=== PATIENT | female | born 1960 | race Caucasian/White ===

== ENCOUNTER 2018-10-03 06:48 | Emergency (ER) | payer SELFPAY ==
[~2018-10-03] VITALS: Ht 170.2 cm; Wt 154.0 kg
[~2018-10-03 06:48] MED LIST: LORTAB 5/3255 MG PO; NO MEDS
[2018-10-03 07:50] VITALS: BP 139/86
== END 2018-10-03 07:42 | disposition home or self-care (01) | DRG 563 ==
LOC: ED 06:48
DX: S86.911A Strain of unspecified muscle(s) and tendon(s) at lower leg level, right leg, initial encounter (principal); M17.11 Unilateral primary osteoarthritis, right knee; I10 Essential (primary) hypertension; X58.XXXA Exposure to other specified factors, initial encounter

== ENCOUNTER 2020-05-26 04:01 | Observation (INO) | payer OTHER ==
[~2020-05-26] VITALS: Ht 170.2 cm; Wt 158.8 kg
[2020-05-26] MEDS ORDERED: HYDROCHLOROT25 MG PO (04:26)
[2020-05-26 05:51] LABS: IMMATURE GRANULOCYTES 0.5 % (0.0-5.0); MEAN CORPUSCULAR HGB 28.5 pG CALC (26.0-32.0); MEAN CORPUSCULAR HGB CONC 32.1 g/dL CAL (32.0-36.0); NEUT# 10.14 thou/uL (2.00-7.15); RED BLOOD COUNT 4.87 mill/uL (4.20-5.60); RED CELL DISTRI WIDTH 14.2 % (11.5-15.5)
[2020-05-26 05:54] LABS: HEMATOCRIT 43.3 % (37.0-47.0); HEMOGLOBIN 13.9 g/dl (12.0-16.0); MEAN CELL VOLUME 88.9 fL CALC (80.0-100.0)
[2020-05-26 06:08] LABS: ALBUMIN 4.2 g/dL (3.2-5.0); ALKALINE PHOSPHATASE 117 u/l (38-126); AMYLASE 47 u/l (30-110); ANION GAP 11 (6-22 (CALC)); BUN 22 mg/dL (8-23); BUN/CREATININE RATIO 29 (12-20 (CALC)); CARBON DIOXIDE 32 mmol/l (22-30); CHLORIDE 97 mmol/l (95-108); CREATININE 0.8 mg/dL (0.5-1.0); GFR > 60 ML/MIN (>=60 (CALC)); GFR FOR AFR.AMER. > 60 ML/MIN (>=60 (CALC)); LIPASE 38 u/l (23-300); POTASSIUM 3.9 mmol/l (3.5-5.1); SGOT/AST 22 u/l (9-36); SODIUM 136 mmol/l (137-146); TOTAL PROTEIN 7.7 g/dL (6.3-8.2)
[2020-05-26 06:09] LABS: BILIRUBIN, TOTAL 0.4 mg/dL (0.0-1.4)
[2020-05-26 17:26] VITALS: BP 137/74
[2020-05-26 20:15] VITALS: BP 150/86
[2020-05-27 03:40] VITALS: BP 129/62
[2020-05-27 05:32] LABS: HEMATOCRIT 39.7 % (37.0-47.0); HEMOGLOBIN 12.3 g/dl (12.0-16.0); MEAN CELL VOLUME 90.6 fL CALC (80.0-100.0); MEAN CORPUSCULAR HGB 28.1 pG CALC (26.0-32.0); RED BLOOD COUNT 4.38 mill/uL (4.20-5.60); RED CELL DISTRI WIDTH 14.5 % (11.5-15.5)
[2020-05-27 05:39] LABS: ANION GAP 7 (6-22 (CALC)); BUN 17 mg/dL (8-23); BUN/CREATININE RATIO 26 (12-20 (CALC)); CARBON DIOXIDE 33 mmol/l (22-30); CHLORIDE 101 mmol/l (95-108); CREATININE 0.7 mg/dL (0.5-1.0); GFR > 60 ML/MIN (>=60 (CALC)); GFR FOR AFR.AMER. > 60 ML/MIN (>=60 (CALC)); MAGNESIUM 2.1 mg/dL (1.6-2.3); POTASSIUM 3.8 mmol/l (3.5-5.1); SODIUM 136 mmol/l (137-146)
[2020-05-27 08:40] VITALS: BP 126/80
[2020-05-27 09:51] LABS: URINE BILIRUBIN - DIPSTICK NEGATIVE (NEGATIVE); URINE BLOOD DIPSTICK NEGATIVE (NEGATIVE); URINE COLOR YELLOW; URINE GLUCOSE - DIPSTICK NEGATIVE (NEGATIVE); URINE KETONE NEGATIVE (NEGATIVE); URINE LEUK ESTERASE NEGATIVE (NEGATIVE); URINE NITRITE - DIPSTICK NEGATIVE (Negative); URINE PROTEIN - DIPSTICK NEGATIVE (NEG-TRACE); URINE SPECIFIC GRAVITY >=1.030; URINE UROBILINOGEN - DIPSTICK 0.2 E.U./dL (0.2)
== END 2020-05-27 14:01 | disposition home or self-care (01) | DRG 389 ==
LOC: ED 04:01 → ED-I 07:06 → ED 07:21 → ED-I 07:22 → MS2 16:11
PROVIDERS: Emergency Medicine; Nurse Practitioner; ADMIT Internal Medicine; ATTEND Internal Medicine
DX: K56.600 Partial intestinal obstruction, unspecified as to cause (principal); K59.00 Constipation, unspecified; Z68.43 Body mass index [BMI] 50.0-59.9, adult; I10 Essential (primary) hypertension; E66.01 Morbid (severe) obesity due to excess calories; Z20.822 Contact with and (suspected) exposure to COVID-19
CPT/HCPCS: G0378; Q9967; S0164

== ENCOUNTER 2021-08-05 09:04 | Emergency (ER) | payer OTHER ==
[~2021-08-05] VITALS: Ht 170.2 cm; Wt 160.0 kg
[~2021-08-05 09:04] MED LIST changes: +HYDROCHLOROT25 MG PO
[2021-08-05 09:10] VITALS: BP 177/74
[2021-08-05] MEDS ORDERED: ULTRAM50 MG PO (10:48)
[2021-08-05] MEDS ORDERED: FLEXERIL5 M1 PO (10:48)
[2021-08-05 10:52] VITALS: BP 177/74
== END 2021-08-05 10:58 | disposition home or self-care (01) | DRG 563 ==
LOC: ED 09:04
DX: S43.402A Unspecified sprain of left shoulder joint, initial encounter (principal); M62.838 Other muscle spasm; I10 Essential (primary) hypertension; X58.XXXA Exposure to other specified factors, initial encounter

== ENCOUNTER → 2022-02-01 | Emergency (ER) | payer OTHER ==
[~2022-02-01] MED LIST changes: +FLEXERIL5 M1 PO; +ULTRAM50 MG PO
== END | disposition home or self-care (01) | DRG 605 ==
LOC: ED 09:07
DX: S61.432A Puncture wound without foreign body of left hand, initial encounter (principal); X58.XXXA Exposure to other specified factors, initial encounter